=== PATIENT | male | born 2000 | race Caucasian/White ===

== ENCOUNTER 2024-02-04 15:39 | Inpatient (IN) | payer MEDICAID ==
[~2024-02-04] VITALS: Ht 175.3 cm; Wt 104.0 kg
[2024-02-04 16:01] VITALS: O2SAT 99
[2024-02-04 16:23] LABS: COVID AG,FIA SOURCE NASAL SWAB
[2024-02-04 16:24] LABS: BASOPHILS % (AUTO) 0.7 % (0.0-2.0); EOSINOPHILS % (AUTO) 2.8 % (1.0-6.0); HEMATOCRIT 51.3 % (41-53); LYMPHOCYTES # (AUTO) 2.9 K/uL (1.0-4.8); LYMPHOCYTES % (AUTO) 29.6 % (22.0-44.0); MEAN CORPUSCULAR HEMOGLOBIN 29.5 pg (26.0-34.0); MEAN CORPUSCULAR HGB CONC 33.1 G/dL (31.0-37.0); MEAN CORPUSCULAR VOLUME 89 fL (80-100); MONOCYTES # (AUTO) 0.7 K/uL (0.1-1.0); NEUTROPHILS # (AUTO) 5.9 K/uL (1.8-7.7); NEUTROPHILS % (AUTO) 59.9 % (40.0-70.0); PLATELET COUNT (AUTO) 286 K/uL (150-450); RED BLOOD CELL COUNT(AUTO) 5.77 MIL/uL (4.50-5.90); RED CELL DISTRIBUTION WIDTH 14.5 % (11.5-14.5); WHITE BLOOD COUNT (AUTO) 9.8 K/uL (4.5-11.0)
[2024-02-04 16:37] LABS: ANION GAP 16 mmol/L (8-16); CALCIUM, TOTAL 9.8 mg/dL (8.8-10.5); CARBON DIOXIDE 22 mmol/L (22-29); CHLORIDE 102 mmol/L (98-107); CREATININE 1.12 mg/dL (0.60-1.30); GLOMERULAR FILTR. RATE CALC > 60 mL/min (>60); GLUCOSE,RANDOM 296 mg/dL (70-110); POTASSIUM 4.2 mmol/L (3.5-5.1); SODIUM SERUM 140 mmol/L (136-145); UREA NITROGEN, BLOOD 10 mg/dL (7-18)
[2024-02-04 16:38] LABS: APPEARANCE,URINE CLEAR (CLEAR); BILIRUBIN,URINE NEGATIVE (NEGATIVE); COLOR,URINE LIGHT YELLOW (YELLOW); GLUCOSE, URINE (UA) >=1000 mg/dL (NEGATIVE); KETONES,URINE NEGATIVE (NEGATIVE); LEUKOCYTE ESTERASE ,URINE NEGATIVE (NEGATIVE); NITRATE,URINE NEGATIVE (NEGATIVE); OCCULT BLOOD,URINE TRACE (NEGATIVE); PROTEIN,URINE TRACE mg/dL (NEGATIVE); UROBILINOGEN,URINE <=1.0 mg/dL (<=1.0)
[2024-02-04 16:38] LABS: ALCOHOL, BLOOD (SERUM) < 3 mg/dL (0-10)
[2024-02-04 16:43] LABS: ALANINE AMINOTRANSFERASE 92 U/L (12-78); ALBUMIN 3.9 g/dL (3.4-5.0); ALKALINE PHOSPHATASE 110 U/L (46-116); ASPARTATE AMINOTRANSFERASE 43 U/L (15-37); BILIRUBIN,TOTAL 0.8 mg/dL (0.1-1.0); TOTAL PROTEIN, SERUM 7.8 g/dL (6.4-8.2)
[2024-02-04 16:46] LABS: ALCOHOL, URINE DRUG SCREEN NEGATIVE (NEGATIVE); AMPHET/METH SCREEN,URINE NEGATIVE (NEGATIVE); BARBITURATE SCREEN, URINE NEGATIVE (NEGATIVE); BENZODIAZEPINES SCREEN,URINE NEGATIVE (NEGATIVE); CANNABINOID SCREEN,URINE NEGATIVE (NEGATIVE); COCAINE SCREEN,URINE NEGATIVE (NEGATIVE); METHADONE SCREEN, URINE NEGATIVE (NEGATIVE); OPIATE SCREEN,URINE NEGATIVE (NEGATIVE); PHENCYCLIDINE SCREEN,URINE NEGATIVE (NEGATIVE)
[2024-02-04 16:47] LABS: BACTERIA,URINE None Seen /HPF (None Seen); RBC,URINE 0-2 /HPF (0-2); SQUAMOUS EPITHELIAL CELL,UR None Seen /LPF (None Seen); WBC,URINE None Seen /HPF (0-5)
[2024-02-04 16:51] LABS: SARS-COV2 (COVID) ANTIGEN,FIA Negative (Negative)
[2024-02-04] MEDS: DiphenhydrAMINE HCL 50 MG/ML VIAL IM ONE (16:58)
[2024-02-04] MEDS: LORazepam 2 MG/ML VIAL IM ONE (16:58)
[2024-02-04] MEDS: HALOPERIDOL LACTATE 5 MG/ML VIAL IM ONE (16:58)
[2024-02-04] MEDS ORDERED: QUET100T PO (20:12)
[2024-02-04] MEDS ORDERED: ALPR-709 PO (20:12)
[2024-02-04] MEDS ORDERED: DIVA125T32 PO (20:12)
[2024-02-05 00:51] VITALS: BP 126/69; PULSE 100; RESP 18; TEMP 97.3; O2SAT 96
[2024-02-05] MEDS: HALOPERIDOL 5 MG TABLET PO PRN (07:41)
[2024-02-05] MEDS: LORazepam 2 MG TABLET PO PRN (07:41)
[2024-02-05 08:26] VITALS: BP 130/92; PULSE 103; RESP 18; TEMP 97.9; O2SAT 96
[2024-02-05] MEDS: QUEtiapine FUMARATE 100 MG TABLET PO SCH (12:55)
[2024-02-05] MEDS: DIVALPROEX SODIUM 125 MG DR TABLET PO SCH (13:00)
[2024-02-05 17:10] LABS: GLUCOMETER DEV NAME(LOC) BV3N.2; GLUCOSE,POINT OF CARE 239 MG/DL (70-110)
[2024-02-05 20:11] VITALS: BP 118/89; PULSE 88; RESP 20; TEMP 97.1; O2SAT 99
[2024-02-05] MEDS ORDERED: QUEtiapine FUMARATE 100 MG TABLET PO SCH (21:00)
[2024-02-06 08:08] VITALS: BP 119/71; RESP 18; TEMP 97.5; O2SAT 96
[2024-02-06] MEDS: DiphenhydrAMINE HCL 50 MG/ML VIAL IM ONE (08:27)
[2024-02-06] MEDS: HALOPERIDOL LACTATE 5 MG/ML VIAL IM ONE (08:28)
[2024-02-06] MEDS: LORazepam 2 MG/ML VIAL IM ONE (08:28)
[2024-02-06 08:53] LABS: HEMOGLOBIN A1C 7.9 % (3.8-5.6)
[2024-02-06 09:08] LABS: CHOL/HDL RATIO 5.9 (4.2-7.3); FREE T4 (FREE THYROXINE) 0.89 ng/dL (0.76-1.46); THYROID STIMULATING HORMONE 2.59 uIU/mL (0.36-3.74)
[2024-02-06 10:11] LABS: GLUCOMETER DEV NAME(LOC) BV3N.2; GLUCOSE,POINT OF CARE 292 MG/DL (70-110)
[2024-02-06 20:16] VITALS: BP 134/85; PULSE 128; RESP 18; TEMP 98; O2SAT 96
[2024-02-06] MEDS: ZOLPIDEM TARTRATE 10 MG TABLET PO PRN (20:40)
[2024-02-07 09:33] VITALS: BP 124/72; PULSE 85; RESP 16; TEMP 97.5; O2SAT 97
[2024-02-07] MEDS ORDERED: ChlorproMAZINE HCL 50 MG/2 ML AMP ONE (11:52)
[2024-02-07] MEDS ORDERED: LORazepam 2 MG/ML VIAL ONE (11:53)
[2024-02-07] MEDS ORDERED: DiphenhydrAMINE HCL 50 MG/ML VIAL ONE (11:54)
[2024-02-07] MEDS: DiphenhydrAMINE HCL 50 MG/ML VIAL IM ONE (12:43)
[2024-02-07] MEDS: ChlorproMAZINE HCL 50 MG/2 ML AMP IM ONE (12:43)
[2024-02-07] MEDS: LORazepam 2 MG/ML VIAL IM ONE (12:43)
[2024-02-07] MEDS: MetFORMIN HCL 500 MG TABLET PO SCH (17:34)
[2024-02-07 20:27] VITALS: BP 127/74; PULSE 134; RESP 18; TEMP 97.8; O2SAT 97
[2024-02-08 08:29] VITALS: BP 143/77; PULSE 97; RESP 18; TEMP 98.3; O2SAT 100
[2024-02-08 20:37] VITALS: BP 145/88; PULSE 105; RESP 20; TEMP 97.5; O2SAT 95
[2024-02-09 08:21] VITALS: RESP 18
[2024-02-09 20:22] VITALS: BP 151/85; PULSE 111; RESP 17; TEMP 97.8; O2SAT 96
[2024-02-10] MEDS ORDERED: LORazepam 2 MG/ML VIAL ONE (10:21)
[2024-02-10] MEDS ORDERED: DiphenhydrAMINE HCL 50 MG/ML VIAL ONE (10:22)
[2024-02-10] MEDS ORDERED: HALOPERIDOL LACTATE 5 MG/ML VIAL ONE (10:22)
[2024-02-10 10:52] VITALS: BP 139/96; PULSE 108; RESP 18; TEMP 97.7; O2SAT 96
[2024-02-10] MEDS: HALOPERIDOL LACTATE 5 MG/ML VIAL IM ONE (11:05)
[2024-02-10] MEDS: LORazepam 2 MG/ML VIAL IM ONE (11:05)
[2024-02-10] MEDS: DiphenhydrAMINE HCL 50 MG/ML VIAL IM ONE (11:05)
[2024-02-10 20:12] VITALS: BP 154/100; PULSE 120; RESP 17; TEMP 97.8; O2SAT 96
[2024-02-11 08:07] VITALS: BP 121/67; PULSE 103; RESP 18; TEMP 97.5; O2SAT 98
[2024-02-11] MEDS: DIVALPROEX SODIUM 250 MG DR TABLET PO SCH (12:50)
[2024-02-11] MEDS: QUEtiapine FUMARATE 200 MG TABLET PO SCH (12:50)
[2024-02-11] MEDS ORDERED: DiphenhydrAMINE HCL 50 MG/ML VIAL ONE (16:46)
[2024-02-11] MEDS ORDERED: LORazepam 2 MG/ML VIAL ONE (16:46)
[2024-02-11] MEDS ORDERED: HALOPERIDOL LACTATE 5 MG/ML VIAL ONE (16:47)
[2024-02-11] MEDS: LORazepam 2 MG/ML VIAL IM ONE (17:01)
[2024-02-11] MEDS: DiphenhydrAMINE HCL 50 MG/ML VIAL IM ONE (17:02)
[2024-02-11] MEDS: HALOPERIDOL LACTATE 5 MG/ML VIAL IM ONE (17:02)
[2024-02-11 20:43] VITALS: BP 132/70; PULSE 102; RESP 18; TEMP 97.7; O2SAT 99
[2024-02-11 20:58] VITALS: RESP 16
[2024-02-12] MEDS ORDERED: ChlorproMAZINE HCL 50 MG/2 ML AMP ONE (09:46)
[2024-02-12] MEDS: ChlorproMAZINE HCL 50 MG/2 ML AMP IM ONE ×2 (09:58→14:46)
[2024-02-12 13:21] VITALS: RESP 17
[2024-02-13 02:24] VITALS: BP 130/72; PULSE 102; RESP 16; TEMP 97.5; O2SAT 99
[2024-02-13 08:04] VITALS: BP 121/95; PULSE 116; RESP 16; TEMP 97.5; O2SAT 97
[2024-02-13 23:12] VITALS: BP 121/56; PULSE 105; RESP 18; TEMP 97.8; O2SAT 98
[2024-02-14 08:23] VITALS: RESP 18
[2024-02-15] MEDS ORDERED: DiphenhydrAMINE HCL 50 MG/ML VIAL ONE (11:23)
[2024-02-15] MEDS ORDERED: ChlorproMAZINE HCL 50 MG/2 ML AMP ONE (11:23)
[2024-02-15] MEDS ORDERED: LORazepam 2 MG/ML VIAL ONE (11:23)
[2024-02-15] MEDS: LORazepam 2 MG/ML VIAL IM ONE ×2 (11:47→18:46)
[2024-02-15] MEDS: DiphenhydrAMINE HCL 50 MG/ML VIAL IM ONE ×2 (11:47→18:46)
[2024-02-15] MEDS: ChlorproMAZINE HCL 50 MG/2 ML AMP IM ONE ×2 (11:47→18:48)
[2024-02-15 16:00] VITALS: BP 150/84; PULSE 105; RESP 18; TEMP 97
[2024-02-15] MEDS: DIVALPROEX SODIUM 500 MG DR TABLET PO SCH (17:04)
[2024-02-15] MEDS: QUEtiapine FUMARATE 300 MG TABLET PO SCH (18:05)
[2024-02-15 21:20] VITALS: RESP 18
[2024-02-16 08:04] VITALS: RESP 18
[2024-02-16 19:30] VITALS: RESP 18
[2024-02-16 22:14] VITALS: RESP 18
[2024-02-17 11:44] VITALS: BP 116/86; PULSE 100; RESP 16; TEMP 97.7; O2SAT 98
[2024-02-17 23:36] VITALS: BP 121/74; PULSE 89; RESP 17; TEMP 98
[2024-02-18 08:07] VITALS: BP 139/80; PULSE 101; RESP 16; TEMP 98.3; O2SAT 99
[2024-02-18] MEDS ORDERED: DIVA-112 PO (11:46)
[2024-02-18] MEDS ORDERED: QUET300T19 PO (11:46)
[2024-02-18] MEDS ORDERED: METF-1211 PO (14:30)
[2024-02-19] MEDS ORDERED: METF-1211 PO (15:42)
== END 2024-02-18 17:16 | disposition home or self-care (01) | DRG 750 ==
LOC: EMS 15:39 → B3A 23:16
PROVIDERS: ADMIT Psychiatry & Neurology Child & Adolescent Psychiatry; ATTEND Psychiatry & Neurology Child & Adolescent Psychiatry
PROC: GZ56ZZZ Individual Psychotherapy, Supportive (ICD-10-PCS; principal; 2024-02-05)
PROC: GZ52ZZZ Individual Psychotherapy, Cognitive (ICD-10-PCS; 2024-02-07)
DX: F20.9 Schizophrenia, unspecified (principal); E11.65 Type 2 diabetes mellitus with hyperglycemia; F84.0 Autistic disorder; I10 Essential (primary) hypertension; Z20.822 Contact with and (suspected) exposure to COVID-19; F41.9 Anxiety disorder, unspecified; E66.9 Obesity, unspecified; R74.01 Elevation of levels of liver transaminase levels; Z79.899 Other long term (current) drug therapy; Z68.33 Body mass index [BMI] 33.0-33.9, adult
CPT/HCPCS: 80048; 80061; 80076; 80164; 80307; 81001; 82962; 83036; 84439; 84443; 85025; 99285; G0480; J1200; J1630; J2060; J3230

== ENCOUNTER 2025-04-16 19:37 | Inpatient (IN) | payer MEDICAID ==
[~2025-04-16] VITALS: Ht 175.3 cm; Wt 94.1 kg
[~2025-04-16 19:37] MED LIST: DIVA-112 PO; METF-1211 PO; QUET300T19 PO
[2025-04-16 20:03] VITALS: BP 145/92; PULSE 105; RESP 18; TEMP 98.5; O2SAT 99
[2025-04-16 20:36] LABS: GLUCOMETER DEV NAME(LOC) POC.BV; POC SARS-COV2 AG, FIA NEGATIVE (NEGATIVE)
[2025-04-16] MEDS: LORazepam 2 MG/ML VIAL IM ONE (20:45)
[2025-04-16] MEDS ORDERED: GLUCAGON,HUMAN RECOMBINANT 1 MG VIAL IM PRN (21:15)
[2025-04-16] MEDS: INSULIN LISPRO 100 UNITS/ML SQ PRN (21:25)
[2025-04-16] MEDS ORDERED: ZOLPIDEM TARTRATE 10 MG TABLET PO PRN (22:30)
[2025-04-16 23:20] LABS: GLUCOMETER DEV NAME(LOC) BV3N.2; GLUCOSE,POINT OF CARE 190 MG/DL (70-110)
[2025-04-17] MEDS ORDERED: ZOLPIDEM TARTRATE 5 MG TABLET PO PRN (00:30)
[2025-04-17 05:52] VITALS: BP 124/62; PULSE 85; RESP 20; TEMP 98; O2SAT 98
[2025-04-17] MEDS ORDERED: ALBUTEROL SULFATE HFA 90 MCG/PUFF 8 GM INHALER IH PRN (06:00)
[2025-04-17] MEDS ORDERED: BACITRACIN 28 GM OINTMENT TP PRN (06:00)
[2025-04-17] MEDS ORDERED: DOCUSATE SODIUM 100 MG CAPSULE PO PRN (06:00)
[2025-04-17] MEDS ORDERED: PETROLATUM,WHITE 28 GM JELLY TP PRN (06:00)
[2025-04-17] MEDS ORDERED: OMEPRAZOLE 20 MG CAPSULE PO PRN (06:00)
[2025-04-17] MEDS ORDERED: ONDANSETRON 4 MG TABLET PO PRN (06:00)
[2025-04-17] MEDS ORDERED: BENZOCAINE/MENTHOL [CEPACOL] LOZENGE PO PRN (06:00)
[2025-04-17] MEDS ORDERED: LOPERAMIDE HCL 2 MG CAPSULE PO PRN (06:00)
[2025-04-17 06:45] LABS: GLUCOMETER DEV NAME(LOC) BV3N.2; GLUCOSE,POINT OF CARE 185 MG/DL (70-110)
[2025-04-17 08:02] VITALS: BP 115/66; PULSE 98; RESP 16; TEMP 98.3; O2SAT 98
[2025-04-17 09:10] LABS: PLATELET COUNT (AUTO) 167 K/uL (150-450); RED BLOOD CELL COUNT(AUTO) 4.45 MIL/uL (4.50-5.90); RED CELL DISTRIBUTION WIDTH 12.8 % (11.5-14.5); WHITE BLOOD COUNT (AUTO) 4.4 K/uL (4.5-11.0)
[2025-04-17 10:19] LABS: ASPARTATE AMINOTRANSFERASE 13 U/L (15-37); CALCIUM, TOTAL 9.1 mg/dL (8.8-10.5); CHOL/HDL RATIO 4.2 (4.2-7.3); CREATININE 0.80 mg/dL (0.60-1.30); GLOMERULAR FILTR. RATE CALC > 60 mL/min (>60); GLUCOSE,RANDOM 167 mg/dL (70-110); LDL CHOL (CALC.) 41 mg/dL (0-130); SODIUM SERUM 141 mmol/L (136-145); TOTAL PROTEIN, SERUM 6.4 g/dL (6.4-8.2); UREA NITROGEN, BLOOD 11 mg/dL (7-18)
[2025-04-17] MEDS: LORazepam 2 MG/ML VIAL IM ONE (12:25)
[2025-04-17] MEDS: MELATONIN 5 MG TABLET PO SCH (20:13)
[2025-04-17 20:39] VITALS: BP 103/67; PULSE 18; RESP 18; TEMP 97.4; O2SAT 97
[2025-04-18 06:15] VITALS: BP 124/66; PULSE 92; RESP 19; TEMP 98; O2SAT 98
[2025-04-18 08:07] VITALS: BP 118/64; PULSE 86; RESP 16; TEMP 98.1; O2SAT 97
[2025-04-18] MEDS: DIVALPROEX SODIUM 500 MG DR TABLET PO SCH (09:03)
[2025-04-18] MEDS ORDERED: LORazepam 2 MG/ML VIAL ONE (12:28)
[2025-04-18] MEDS: LORazepam 2 MG/ML VIAL IM ONE (12:54)
[2025-04-18 15:00] VITALS: BP 119/64; PULSE 88; RESP 17; O2SAT 97
[2025-04-18 20:03] VITALS: RESP 18
[2025-04-19 00:20] LABS: GLUCOMETER DEV NAME(LOC) BV3N.2; GLUCOSE,POINT OF CARE 136 MG/DL (70-110)
[2025-04-19 00:20] LABS: GLUCOMETER DEV NAME(LOC) BV3N.2; GLUCOSE,POINT OF CARE 173 MG/DL (70-110)
[2025-04-19 06:35] VITALS: BP 123/67; PULSE 80; RESP 18; TEMP 97; O2SAT 99
[2025-04-19 06:40] LABS: GLUCOMETER DEV NAME(LOC) BV3N.2; GLUCOSE,POINT OF CARE 106 MG/DL (70-110)
[2025-04-19 08:27] VITALS: BP 125/77; PULSE 88; RESP 18; TEMP 97.7; O2SAT 100
[2025-04-19] MEDS ORDERED: LORazepam 2 MG/ML VIAL ONE (11:56)
[2025-04-19] MEDS: LORazepam 2 MG/ML VIAL IM ONE (12:19)
[2025-04-19] MEDS: DIVALPROEX SODIUM 500 MG DR TABLET PO SCH (20:07)
[2025-04-19 20:13] VITALS: BP 118/79; PULSE 81; RESP 18; TEMP 97.2; O2SAT 97
[2025-04-20] MEDS: DIVALPROEX SODIUM 500 MG DR TABLET PO SCH (06:37)
[2025-04-20 06:40] LABS: GLUCOMETER DEV NAME(LOC) BV3N.2; GLUCOSE,POINT OF CARE 117 MG/DL (70-110)
[2025-04-20 08:01] VITALS: BP 122/78; PULSE 71; RESP 18; TEMP 98.3; O2SAT 98
[2025-04-20] MEDS ORDERED: LORazepam 2 MG/ML VIAL ONE (10:35)
[2025-04-20] MEDS: LORazepam 2 MG/ML VIAL IM ONE ×2 (10:55→18:03)
[2025-04-20 20:13] VITALS: BP 128/77; PULSE 100; RESP 18; TEMP 97.2; O2SAT 98
[2025-04-21 08:03] VITALS: RESP 18
[2025-04-21] MEDS ORDERED: LORazepam 2 MG/ML VIAL ONE (08:33)
[2025-04-21] MEDS: LORazepam 2 MG/ML VIAL IM ONE ×3 (09:32→17:58)
[2025-04-21 14:18] VITALS: BP 110/61; PULSE 94
[2025-04-21 20:03] VITALS: RESP 18
[2025-04-21] MEDS: DIVALPROEX SODIUM 125 MG DR CAPSULE PO SCH (20:03)
[2025-04-21] MEDS ORDERED: DIVALPROEX SODIUM 125 MG DR CAPSULE PO SCH (21:00)
[2025-04-22 08:01] VITALS: RESP 18
[2025-04-22] MEDS ORDERED: LORazepam 2 MG/ML VIAL ONE (08:58)
[2025-04-22] MEDS: LORazepam 2 MG/ML VIAL IM ONE ×2 (09:53→13:21)
[2025-04-22 12:10] VITALS: BP_SYST 131; BP_DIAS 90; BP_DIAS 91; PULSE 107; RESP 19; TEMP 97.7
[2025-04-22 20:07] VITALS: RESP 18
[2025-04-23] MEDS ORDERED: LORazepam 2 MG/ML VIAL ONE (07:36)
[2025-04-23] MEDS: LORazepam 2 MG/ML VIAL IM ONE ×2 (08:49→17:19)
[2025-04-23 09:22] VITALS: RESP 18
[2025-04-23 20:41] VITALS: RESP 18
[2025-04-24] MEDS ORDERED: LORazepam 2 MG/ML VIAL ONE (07:25)
[2025-04-24] MEDS: LORazepam 2 MG/ML VIAL IM ONE (08:07)
[2025-04-24] MEDS: PALIPERIDONE PALMITATE 234 MG/1.5 ML SYRINGE IM ONE (09:28)
[2025-04-24 10:26] VITALS: BP 124/84; PULSE 110; RESP 17; TEMP 97.7; O2SAT 99
[2025-04-24 20:08] VITALS: BP 121/75; RESP 16; TEMP 98.4; O2SAT 98
[2025-04-25 08:40] VITALS: RESP 18
[2025-04-25 12:10] VITALS: BP 123/83; PULSE 90; RESP 18; O2SAT 98
[2025-04-25 20:11] VITALS: RESP 18
[2025-04-25] MEDS: DIVALPROEX SODIUM 125 MG DR CAPSULE PO SCH (20:54)
[2025-04-26 08:10] VITALS: BP 134/82; PULSE 100; RESP 17; TEMP 97.2; O2SAT 97
[2025-04-26 09:06] LABS: PLATELET COUNT (AUTO) 147 K/uL (150-450); RED BLOOD CELL COUNT(AUTO) 4.89 MIL/uL (4.50-5.90); RED CELL DISTRIBUTION WIDTH 12.6 % (11.5-14.5); WHITE BLOOD COUNT (AUTO) 6.1 K/uL (4.5-11.0)
[2025-04-26 09:30] LABS: ASPARTATE AMINOTRANSFERASE 18 U/L (15-37); CALCIUM, TOTAL 9.2 mg/dL (8.8-10.5); CREATININE 0.80 mg/dL (0.60-1.30); GLOMERULAR FILTR. RATE CALC > 60 mL/min (>60); GLUCOSE,RANDOM 111 mg/dL (70-110); SODIUM SERUM 141 mmol/L (136-145); TOTAL PROTEIN, SERUM 7.0 g/dL (6.4-8.2); UREA NITROGEN, BLOOD 9 mg/dL (7-18); VALPROIC ACID 87 mcg/mL (50-100)
[2025-04-26] MEDS: LORazepam 2 MG/ML VIAL IM ONE ×2 (13:49→19:15)
[2025-04-26 21:58] VITALS: BP 119/108; PULSE 146; RESP 18; TEMP 97.3; O2SAT 93
[2025-04-27 08:59] VITALS: BP 139/84; PULSE 96; RESP 20; TEMP 97.1; O2SAT 99
[2025-04-27 16:40] LABS: GLUCOMETER DEV NAME(LOC) BV3S.2; GLUCOSE,POINT OF CARE 302 MG/DL (70-110)
[2025-04-27 20:01] VITALS: RESP 18
[2025-04-28] MEDS: LORazepam 2 MG/ML VIAL IM ONE ×2 (09:06→16:37)
[2025-04-28] MEDS: PNEUMOCOCCAL VACCINE POLYVALENT 0.5 ML SYRINGE [PPSV23] IM. ONE (09:47)
[2025-04-28] MEDS: INFLUENZA VIRUS VACCINE TVS (6MO+) 2025-26/PF 45 MCG/0.5 ML SYRINGE IM. ONE (09:48)
[2025-04-28 10:06] VITALS: BP 135/97; PULSE 113; RESP 15; TEMP 98.1; O2SAT 99
[2025-04-28] MEDS: PALIPERIDONE PALMITATE 156 MG/ML SYRINGE IM ONE (10:31)
[2025-04-28 20:04] VITALS: BP 135/70; RESP 16; TEMP 98.3; O2SAT 99
[2025-04-28 20:25] LABS: GLUCOMETER DEV NAME(LOC) BV3N.2; GLUCOSE,POINT OF CARE 181 MG/DL (70-110)
[2025-04-28 20:25] LABS: GLUCOMETER DEV NAME(LOC) BV3N.2; GLUCOSE,POINT OF CARE 202 MG/DL (70-110)
[2025-04-28 20:25] LABS: GLUCOMETER DEV NAME(LOC) BV3N.2; GLUCOSE,POINT OF CARE 172 MG/DL (70-110)
[2025-04-28 20:25] LABS: GLUCOMETER DEV NAME(LOC) BV3N.2; GLUCOSE,POINT OF CARE 252 MG/DL (70-110)
[2025-04-28 20:25] LABS: GLUCOMETER DEV NAME(LOC) BV3N.2; GLUCOSE,POINT OF CARE 160 MG/DL (70-110)
[2025-04-28 20:25] LABS: GLUCOMETER DEV NAME(LOC) BV3N.2; GLUCOSE,POINT OF CARE 297 MG/DL (70-110)
[2025-04-28 20:25] LABS: GLUCOMETER DEV NAME(LOC) BV3N.2; GLUCOSE,POINT OF CARE 252 MG/DL (70-110)
[2025-04-28 20:25] LABS: GLUCOMETER DEV NAME(LOC) BV3N.2; GLUCOSE,POINT OF CARE 214 MG/DL (70-110)
[2025-04-28 20:25] LABS: GLUCOMETER DEV NAME(LOC) BV3N.2; GLUCOSE,POINT OF CARE 185 MG/DL (70-110)
[2025-04-28 20:25] LABS: GLUCOMETER DEV NAME(LOC) BV3N.2; GLUCOSE,POINT OF CARE 199 MG/DL (70-110)
[2025-04-28 20:25] LABS: GLUCOMETER DEV NAME(LOC) BV3N.2; GLUCOSE,POINT OF CARE 177 MG/DL (70-110)
[2025-04-29 08:04] VITALS: BP 124/81; PULSE 97; RESP 16; TEMP 97.4; O2SAT 99
[2025-04-29] MEDS ORDERED: LORazepam 2 MG/ML VIAL ONE (09:25)
[2025-04-29] MEDS: LORazepam 2 MG/ML VIAL IM ONE (09:49)
[2025-04-29 17:21] LABS: GLUCOMETER DEV NAME(LOC) BV3N.2; GLUCOSE,POINT OF CARE 258 MG/DL (70-110)
[2025-04-29 17:21] LABS: GLUCOMETER DEV NAME(LOC) BV3N.2; GLUCOSE,POINT OF CARE 154 MG/DL (70-110)
[2025-04-29 17:21] LABS: GLUCOMETER DEV NAME(LOC) BV3N.2; GLUCOSE,POINT OF CARE 189 MG/DL (70-110)
[2025-04-29 20:46] VITALS: BP 137/99; PULSE 112; RESP 19; TEMP 97.4; O2SAT 98
[2025-04-30 08:03] VITALS: BP_SYST 127; BP_SYST 142; BP_DIAS 81; BP_DIAS 92; RESP 16; TEMP 97.6; O2SAT 100; O2SAT 98
[2025-04-30] MEDS ORDERED: LORazepam 2 MG/ML VIAL ONE (16:36)
[2025-04-30] MEDS: LORazepam 2 MG/ML VIAL IM ONE (17:08)
[2025-04-30 20:05] VITALS: RESP 16
[2025-04-30 20:29] VITALS: BP 106/67; PULSE 74; RESP 17; TEMP 98; O2SAT 100
[2025-05-01 08:10] VITALS: BP 130/85; RESP 16; TEMP 97.9; O2SAT 100
[2025-05-01 20:04] VITALS: RESP 18
[2025-05-02 06:55] LABS: GLUCOMETER DEV NAME(LOC) BV3N.2; GLUCOSE,POINT OF CARE 113 MG/DL (70-110)
[2025-05-02 06:55] LABS: GLUCOMETER DEV NAME(LOC) BV3N.2; GLUCOSE,POINT OF CARE 220 MG/DL (70-110)
[2025-05-02 06:55] LABS: GLUCOMETER DEV NAME(LOC) BV3N.2; GLUCOSE,POINT OF CARE 253 MG/DL (70-110)
[2025-05-02 06:56] LABS: GLUCOMETER DEV NAME(LOC) BV3N.2; GLUCOSE,POINT OF CARE 143 MG/DL (70-110)
[2025-05-02 08:01] VITALS: BP 140/94; PULSE 100; RESP 18; TEMP 97.2; O2SAT 99
[2025-05-02 08:51] LABS: PLATELET COUNT (AUTO) 253 K/uL (150-450); RED BLOOD CELL COUNT(AUTO) 5.00 MIL/uL (4.50-5.90); RED CELL DISTRIBUTION WIDTH 12.5 % (11.5-14.5); WHITE BLOOD COUNT (AUTO) 7.8 K/uL (4.5-11.0)
[2025-05-02 12:05] LABS: GLUCOMETER DEV NAME(LOC) BV3N.2; GLUCOSE,POINT OF CARE 150 MG/DL (70-110)
[2025-05-02 16:51] LABS: GLUCOMETER DEV NAME(LOC) BV3N.2; GLUCOSE,POINT OF CARE 227 MG/DL (70-110)
[2025-05-02 18:35] VITALS: RESP 18
[2025-05-02] MEDS: ACETAMINOPHEN 325 MG TABLET PO PRN (18:39)
[2025-05-02 19:39] VITALS: BP 131/91; PULSE 100; RESP 18; TEMP 97.5; O2SAT 98
[2025-05-02 20:06] VITALS: BP 131/91; PULSE 100; RESP 18; TEMP 97.5; O2SAT 98
[2025-05-02 21:40] LABS: GLUCOMETER DEV NAME(LOC) BV3N.2; GLUCOSE,POINT OF CARE 194 MG/DL (70-110)
[2025-05-03 06:40] LABS: GLUCOMETER DEV NAME(LOC) BV3N.2; GLUCOSE,POINT OF CARE 142 MG/DL (70-110)
[2025-05-03 08:04] VITALS: BP 124/85; PULSE 89; RESP 18; TEMP 97.2; O2SAT 97
[2025-05-03 11:10] LABS: GLUCOMETER DEV NAME(LOC) BV3N.2; GLUCOSE,POINT OF CARE 246 MG/DL (70-110)
[2025-05-03] MEDS: MAG HYDROX/ALUMINUM HYD/SIMETH ES 30 ML SUSPENSION UDCUP PO PRN (15:27)
[2025-05-03 16:16] LABS: GLUCOMETER DEV NAME(LOC) BV3N.2; GLUCOSE,POINT OF CARE 245 MG/DL (70-110)
[2025-05-03 20:06] VITALS: BP 136/90; PULSE 98; RESP 18; TEMP 97; O2SAT 98
[2025-05-04 08:09] VITALS: BP 115/71; PULSE 100; RESP 17; TEMP 97.4; O2SAT 98
[2025-05-04 20:08] VITALS: BP 144/92; PULSE 100; RESP 18; TEMP 97.3; O2SAT 98
[2025-05-05 08:07] VITALS: BP 123/79; PULSE 97; RESP 17; TEMP 97.1; O2SAT 97
[2025-05-05 17:16] LABS: GLUCOMETER DEV NAME(LOC) BV3N.2; GLUCOSE,POINT OF CARE 262 MG/DL (70-110)
[2025-05-05 17:16] LABS: GLUCOMETER DEV NAME(LOC) BV3N.2; GLUCOSE,POINT OF CARE 132 MG/DL (70-110)
[2025-05-05 20:00] VITALS: BP 128/69; PULSE 84; RESP 17; TEMP 97.8; O2SAT 98
[2025-05-06 08:05] VITALS: BP 110/66; PULSE 92; RESP 17; TEMP 96.7; O2SAT 97
[2025-05-07 07:00] LABS: GLUCOMETER DEV NAME(LOC) BV3N.2; GLUCOSE,POINT OF CARE 138 MG/DL (70-110)
[2025-05-07 07:00] LABS: GLUCOMETER DEV NAME(LOC) BV3N.2; GLUCOSE,POINT OF CARE 162 MG/DL (70-110)
[2025-05-07 09:17] VITALS: BP 118/78; PULSE 94; RESP 17; TEMP 97.3; O2SAT 98
[2025-05-08 08:02] VITALS: BP 113/74; PULSE 92; RESP 16; TEMP 97.2; O2SAT 100
[2025-05-08 20:16] VITALS: BP 135/87; PULSE 88; RESP 17; TEMP 98; O2SAT 100
[2025-05-08 22:30] LABS: GLUCOMETER DEV NAME(LOC) BV3N.2; GLUCOSE,POINT OF CARE 153 MG/DL (70-110)
[2025-05-09 08:36] VITALS: BP 100/64; PULSE 89; RESP 17; TEMP 97.7; O2SAT 99
[2025-05-09 09:43] LABS: PLATELET COUNT (AUTO) 231 K/uL (150-450); RED BLOOD CELL COUNT(AUTO) 4.42 MIL/uL (4.50-5.90); RED CELL DISTRIBUTION WIDTH 12.8 % (11.5-14.5); WHITE BLOOD COUNT (AUTO) 7.4 K/uL (4.5-11.0)
[2025-05-09 20:13] VITALS: RESP 18
[2025-05-10 06:25] LABS: GLUCOMETER DEV NAME(LOC) BV3N.2; GLUCOSE,POINT OF CARE 121 MG/DL (70-110)
[2025-05-10 06:26] LABS: GLUCOMETER DEV NAME(LOC) BV3N.2; GLUCOSE,POINT OF CARE 158 MG/DL (70-110)
[2025-05-10 08:04] VITALS: BP 112/85; PULSE 67; RESP 17; TEMP 97.1; O2SAT 97
[2025-05-10 20:11] VITALS: BP 116/78; PULSE 81; RESP 18; TEMP 97.8; O2SAT 98
[2025-05-10 20:17] VITALS: RESP 18
[2025-05-11 08:01] VITALS: BP 95/62; PULSE 87; RESP 17; TEMP 97.1; O2SAT 98
[2025-05-11 20:12] VITALS: BP 144/95; PULSE 85; RESP 18; TEMP 98.2; O2SAT 98
[2025-05-11 23:56] LABS: GLUCOMETER DEV NAME(LOC) BV3N.2; GLUCOSE,POINT OF CARE 145 MG/DL (70-110)
[2025-05-11 23:56] LABS: GLUCOMETER DEV NAME(LOC) BV3N.2; GLUCOSE,POINT OF CARE 175 MG/DL (70-110)
[2025-05-11 23:56] LABS: GLUCOMETER DEV NAME(LOC) BV3N.2; GLUCOSE,POINT OF CARE 125 MG/DL (70-110)
[2025-05-11 23:56] LABS: GLUCOMETER DEV NAME(LOC) BV3N.2; GLUCOSE,POINT OF CARE 245 MG/DL (70-110)
[2025-05-12 08:04] VITALS: BP 125/78; PULSE 98; RESP 15; TEMP 97.3; O2SAT 98
[2025-05-12] MEDS: IBUPROFEN 600 MG TABLET PO PRN (08:58)
[2025-05-12] MEDS: SENNOSIDES 8.8 MG/5 ML SYRUP UDCUP PO SCH (09:00)
[2025-05-12 20:18] VITALS: BP 109/61; PULSE 99; RESP 17; TEMP 97.8; O2SAT 100
[2025-05-13 08:34] VITALS: RESP 16
[2025-05-13 09:15] VITALS: BP 123/83; PULSE 99; RESP 18; TEMP 97.7; O2SAT 97
[2025-05-13 09:34] VITALS: RESP 17
[2025-05-13 20:33] VITALS: BP 119/55; PULSE 102; RESP 17; TEMP 98
[2025-05-13 21:25] LABS: GLUCOMETER DEV NAME(LOC) BV3N.2; GLUCOSE,POINT OF CARE 251 MG/DL (70-110)
[2025-05-14 08:31] VITALS: BP 103/60; PULSE 72; RESP 17; TEMP 97.9; O2SAT 98
[2025-05-14] MEDS ORDERED: DIVA125C20 PO (08:46)
[2025-05-14] MEDS ORDERED: CLOZ100T61 PO ×2 (08:46)
[2025-05-14] MEDS ORDERED: QUET25TA36 PO (08:46)
[2025-05-14] MEDS ORDERED: QUET200T30 PO (08:46)
[2025-05-14] MEDS ORDERED: MELA5TAB40 PO (08:46)
[2025-05-14] MEDS ORDERED: SENN8.8S31 PO (08:46)
[2025-05-14] MEDS: MAGNESIUM HYDROXIDE SUSPENSION 30 ML UDCUP PO PRN (11:24)
[2025-05-14 20:04] VITALS: BP 122/61; PULSE 74; RESP 17; TEMP 97.8; O2SAT 99
[2025-05-15 00:41] LABS: GLUCOMETER DEV NAME(LOC) BV3N.2; GLUCOSE,POINT OF CARE 291 MG/DL (70-110)
[2025-05-15 00:41] LABS: GLUCOMETER DEV NAME(LOC) BV3N.2; GLUCOSE,POINT OF CARE 209 MG/DL (70-110)
[2025-05-15 00:41] LABS: GLUCOMETER DEV NAME(LOC) BV3N.2; GLUCOSE,POINT OF CARE 161 MG/DL (70-110)
[2025-05-15 00:41] LABS: GLUCOMETER DEV NAME(LOC) BV3N.2; GLUCOSE,POINT OF CARE 199 MG/DL (70-110)
[2025-05-15 06:16] LABS: GLUCOMETER DEV NAME(LOC) BV3N.2; GLUCOSE,POINT OF CARE 188 MG/DL (70-110)
[2025-05-15 08:01] VITALS: BP 105/72; RESP 18; TEMP 97.5; O2SAT 98
[2025-05-15 18:15] LABS: GLUCOMETER DEV NAME(LOC) BV3N.2; GLUCOSE,POINT OF CARE 173 MG/DL (70-110)
[2025-05-15 20:02] VITALS: RESP 18
[2025-05-16 05:51] LABS: GLUCOMETER DEV NAME(LOC) BV3N.2; GLUCOSE,POINT OF CARE 148 MG/DL (70-110)
[2025-05-16 05:51] LABS: GLUCOMETER DEV NAME(LOC) BV3N.2; GLUCOSE,POINT OF CARE 154 MG/DL (70-110)
[2025-05-16 08:42] VITALS: BP 101/66; PULSE 99; RESP 17; TEMP 97.9; O2SAT 98
[2025-05-16 12:20] LABS: GLUCOMETER DEV NAME(LOC) BV3N.2; GLUCOSE,POINT OF CARE 152 MG/DL (70-110)
[2025-05-16 18:07] LABS: CLOZAPINE & NORCLOZAPINE 957 ng/mL; NORCLOZAPINE 176 ng/mL (Not Estab.)
[2025-05-16 20:48] VITALS: BP 110/62; PULSE 98; RESP 18; TEMP 97.3; O2SAT 98
[2025-05-17 08:02] VITALS: BP 112/65; PULSE 78; RESP 18; TEMP 98.1; O2SAT 97
[2025-05-17 20:05] VITALS: RESP 18
[2025-05-17 20:07] LABS: GLUCOMETER DEV NAME(LOC) BV3N.2; GLUCOSE,POINT OF CARE 180 MG/DL (70-110)
[2025-05-17 20:07] LABS: GLUCOMETER DEV NAME(LOC) BV3N.2; GLUCOSE,POINT OF CARE 203 MG/DL (70-110)
[2025-05-17 20:07] LABS: GLUCOMETER DEV NAME(LOC) BV3N.2; GLUCOSE,POINT OF CARE 166 MG/DL (70-110)
[2025-05-17 21:25] LABS: GLUCOMETER DEV NAME(LOC) BV3N.2; GLUCOSE,POINT OF CARE 149 MG/DL (70-110)
[2025-05-18 06:35] LABS: GLUCOMETER DEV NAME(LOC) BV3N.2; GLUCOSE,POINT OF CARE 130 MG/DL (70-110)
[2025-05-18 08:55] VITALS: BP 130/73; PULSE 98; RESP 18; TEMP 97.9; O2SAT 100
[2025-05-18] MEDS ORDERED: SENN8.8S31 PO (17:17)
[2025-05-18] MEDS ORDERED: QUET25TA36 PO (17:17)
[2025-05-18] MEDS ORDERED: MELA5TAB40 PO (17:17)
[2025-05-18] MEDS ORDERED: DIVA125C20 PO (17:17)
[2025-05-18] MEDS ORDERED: CLOZ100T61 PO ×2 (17:17)
[2025-05-18 17:51] LABS: GLUCOMETER DEV NAME(LOC) BV3N.2; GLUCOSE,POINT OF CARE 241 MG/DL (70-110)
[2025-05-18 20:07] VITALS: RESP 18
[2025-05-20] MEDS ORDERED: QUET200T30 PO (09:03)
== END 2025-05-18 21:48 | disposition home or self-care (01) | DRG 761 ==
LOC: B3A 19:54
PROVIDERS: ADMIT Psychiatry & Neurology Psychiatry; ATTEND Psychiatry & Neurology Psychiatry
DX: F25.0 Schizoaffective disorder, bipolar type (principal); E11.9 Type 2 diabetes mellitus without complications; E66.9 Obesity, unspecified; F41.9 Anxiety disorder, unspecified; Z20.822 Contact with and (suspected) exposure to COVID-19; F84.0 Autistic disorder; K21.9 Gastro-esophageal reflux disease without esophagitis; G47.00 Insomnia, unspecified; E78.5 Hyperlipidemia, unspecified; K59.00 Constipation, unspecified; Z68.30 Body mass index [BMI] 30.0-30.9, adult
CPT/HCPCS: 80053; 80061; 80159; 80164; 82962; 83036; 84439; 84443; 85025; 90732; J1200; J1630; J2060; J3230